=== PATIENT | female | born 1955 ===

== ENCOUNTER 2023-06-28 07:00 | Inpatient (IN) | payer OTHER ==
[~2023-06-28] VITALS: Ht 154.9 cm; Wt 83.9 kg
[2023-06-28 11:23] LABS: URINE APPEARANCE Clear; URINE BILIRRUBIN Negative (NEGATIVE); URINE BLOOD Negative; URINE COLOR Yellow; URINE GLUCOSE Negative (NEGATIVE); URINE LEUKOCYTE Negative; URINE NITRATE Negative; URINE PROTEIN Negative (NEGATIVE); URINE UROBILINOGEN 0.2 E.U./dl
[2023-06-28 11:25] LABS: HEMATOCRIT 41.4 % (36.0-45.00); HEMOGLOBIN 13.9 g/dL (12.0-15.00); MEAN CELL VOLUME 81.5 fL (80.00-100.00); MEAN CORPUSCULAR HEMOGLOBIN 27.4 pg (27.00-32.0); MEAN CORPUSCULAR HGB CONC 33.6 g/dl (32.0-36.0); PLATELET COUNT 205 K/uL (150-450); RED BLOOD COUNT 5.07 M/uL (4.00-6.00); RED CELL DISTRIBUTION WIDTH 14.1 % (11.5-14.5)
[2023-06-28 11:27] LABS: URINE BACTERIA 1361.9 uL (0.0-1933); URINE EPITHELIAL CELLS 70.3 uL (0.0-38.8); URINE RBC 5.3 uL (0.0-20.8); URINE WBC 37.2 uL (0.0-23.2)
[2023-06-28] MEDS ORDERED: LISINOPRIL10 MG PO (11:32)
[2023-06-28] MEDS ORDERED: ALENDRONATE SOD70 MG PO (11:33)
[2023-06-28] MEDS ORDERED: SIMVASTATIN10 MG PO (11:33)
[2023-06-28 11:59] LABS: CALCIUM 11.5 mg/dL (8.5-10.1); CREATININE SERUM 0.66 mg/dL (0.55-1.02); GFR 89.88; POTASSIUM 4.25 mEq/L (3.5-5.1)
[2023-06-28 12:25] LABS: INR 1.09; PARTIAL THROMBOPLASTIN TIME 27.1 SECONDS (22.0-34.0); PROTHROMBIN TIME 11.4 SECONDS (9.0-11.5)
[2023-07-04] MEDS ORDERED: MELOXICAM15 MG (14:09)
[2023-07-04] MEDS ORDERED: LISINOPRIL-HCT1 EAC1 (14:09)
[2023-07-04 21:12] LABS: HEMATOCRIT 36.8 % (36.0-45.00); RED BLOOD COUNT 4.56 M/uL (4.00-6.00)
[2023-07-05 04:48] LABS: HEMATOCRIT 33.6 % (36.0-45.00); MEAN CELL VOLUME 79.9 fL (80.00-100.00); MEAN CORPUSCULAR HGB CONC 33.5 g/dl (32.0-36.0); PLATELET COUNT 184 K/uL (150-450)
[2023-07-05 04:52] LABS: HEMOGLOBIN 11.3 g/dL (12.0-15.00); MEAN CORPUSCULAR HEMOGLOBIN 26.9 pg (27.00-32.0)
[2023-07-06] MEDS ORDERED: BACTRIM DS TAB1 EACH PO (06:28)
[2023-07-06] MEDS ORDERED: OXYC1TAB9 PO (06:28)
[2023-07-06] MEDS ORDERED: XARELTO10 MG PO (06:28)
[2023-07-06] MEDS ORDERED: INTEGRA PLUS C1 EACH PO (06:28)
[2023-07-06 06:54] LABS: HEMATOCRIT 29.8 % (36.0-45.00); HEMOGLOBIN 10.2 g/dL (12.0-15.00); MEAN CELL VOLUME 80.2 fL (80.00-100.00); MEAN CORPUSCULAR HEMOGLOBIN 27.4 pg (27.00-32.0); MEAN CORPUSCULAR HGB CONC 34.2 g/dl (32.0-36.0); PLATELET COUNT 172 K/uL (150-450); RED BLOOD COUNT 3.72 M/uL (4.00-6.00); RED CELL DISTRIBUTION WIDTH 14.2 % (11.5-14.5)
== END 2023-07-06 16:54 | DRG 470 ==
LOC: SURH 07-04 07:00 → O/R 07-04 12:08 → SURG 07-04 16:16
PROVIDERS: ADMIT Orthopaedic Surgery Sports Medicine; ATTEND Orthopaedic Surgery Sports Medicine
PROC: 0SRB0JA Replacement of Left Hip Joint with Synthetic Substitute, Uncemented, Open Approach (ICD-10-PCS; principal; 2023-07-04 10:30)
DX: M16.12 Unilateral primary osteoarthritis, left hip (principal); I10 Essential (primary) hypertension; E78.5 Hyperlipidemia, unspecified